=== PATIENT | male | born 1965 | race Two or more races ===

== ENCOUNTER 2025-06-08 07:10 | Day surgery (SDC) | payer MEDICAID, SELFPAY ==
--- NOTE | 2025-06-02 06:16 | EKG_ITS ---
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
[2025-06-02 07:21] VITALS: BMI 18.9
[2025-06-02 08:08] LABS: Collection Type, Urine Clean Catch; Squamous Epithelial Cell,Urine 0 /hpf (0-5)
[2025-06-02 08:22] LABS: Bilirubin,Urine Negative (Negative); Blood,Urine Negative (Negative); Clarity,Urine Clear (Clear/Hazy); Color,Urine Lt-Yellow (Lt Yel-Yel); Glucose, Urine Negative (Negative); Ketones,Urine Negative (Negative); Leukocyte Esterase,Urine Negative (Negative); Nitrite,Urine Negative (Negative); PH,Urine 6.5 (5.0-7.0); Protein,Urine Negative (Neg - Trace); RBC,Urine 3 /hpf (0-3); Specific Gravity,Urine 1.013 (1.001-1.035); Urobilinogen,Urine Negative mg/dL (0.0-1.0); WBC,Urine 1 /hpf (0-5)
[2025-06-02 08:31] LABS: Basophils # (Auto) 0.1 Thou/mm3 (0.0-0.2); Basophils % (Auto) 2 % (0-2.5); Eosinophils # (Auto) 0.0 Thou/mm3 (0.0-0.5); Eosinophils % (Auto) 1 % (0-10); Hematocrit 37.6 % (41.0-53.0); Hemoglobin 13.1 g/dL (13.5-16.0); Immature Granulocytes Auto 0.01 Thou/mm3 (0.00-0.00); Lymphocytes # (Auto) 1.0 Thou/mm3 (1.0-4.8); Lymphocytes % (Auto) 23 % (10-50); Mean Corpuscular HGB Conc 34.8 g/dl (31.0-37.0); Mean Corpuscular Hemoglobin 33.0 pg (25.0-35.0); Mean Corpuscular Volume 95 fL (80-100); Monocytes # (Auto) 0.5 Thou/mm3 (0.0-0.8); Monocytes % (Auto) 12 % (0-12); Neutrophils # (Auto) 2.7 Thou/mm3 (1.8-7.7); Neutrophils % (Auto) 63 % (37-80); Nucleated Red Blood Cell # 0.00 Thou/mm3 (0.00-0.00); Nucleated Red Blood Cell % 0 /100 WBC (0); Platelet Count 281 Thou/mm3 (140-440); RDW Standard Deviation 46.3 fL (35.1-43.9); Red Blood Count 3.97 Miln/mm3 (4.50-5.90); White Blood Count 4.3 Thou/mm3 (3.8-10.6)
[2025-06-02 08:50] LABS: Alanine Aminotransferase 24 U/L (10-49); Albumin, Serum 3.7 gm/dL (3.5-5.0); Albumin/Globulin Ratio 1.1 (1.2-2.2); Alkaline Phosphatase 161 U/L (46-116); Anion Gap 12 (7-16); Aspartate Amino Transferase 58 U/L (0-34); BUN/Creatinine Ratio 6 Ratio (12-20); Bilirubin,Total 0.3 mg/dL (0.3-1.2); Blood Urea Nitrogen < 5 mg/dL (9-23); Calcium 9.0 mg/dL (8.3-10.6); Calcium (Corrected) 9.2 mg/dL (8.5-10.1); Carbon Dioxide 25.5 mMol/L (20.0-31.0); Chloride 103 mMol/L (98-107); Creatinine (Component) 0.8 mg/dL (0.6-1.3); Estimated Creatinine Clearance 75.0 mL/min (>60); Globulin 3.3 gm/dL (2.3-3.5); Glucose 117 mg/dL (74-106); Osmolality,Calculated 277 (275-295); Potassium 3.8 mMol/L (3.4-5.1); Sodium 140 mMol/L (136-145); Total Protein 7.0 gm/dL (5.7-8.2); eGFR > 60 See Note
--- NOTE | 2025-06-07 12:11 | ESHP_ITS ---
RE: DEVORAH CLARKE : 1965 DATE OF ADMISSION: 06/07/2025 HISTORY OF PRESENT ILLNESS: A 60-year-old gentleman who was seen in the office with elevated PSA of 7.1. He has a history of enlarged prostate with nocturia 2-3 times. Urinary stream is slow. His PSA was 5.3, now it has gone up to 7.1. PAST SURGICAL HISTORY: History of cholecystectomy and hernia operations. SOCIAL HISTORY: He has 2 children. ALLERGIES: NONE KNOWN. PAST MEDICAL HISTORY: There is no history of diabetes mellitus. He has a history of hypertension. MEDICATIONS: He takes amitriptyline, Norvasc, Cipro, and tamsulosin 0.4 mg every day. PHYSICAL EXAMINATION: Reveals HEENT: Normal. Neck: Supple. Lungs are clear. Heart sounds are normal. Abdomen is soft without any organomegaly. No guarding. No rigidity. Extremities are normal. Phallus is normal. Testes are down in the scrotum. Rectal examination reveals moderately enlarged smooth prostate. IMPRESSION: 1. Prostatic obstruction. 2. Prostatism. 3. Elevated prostate-specific antigen. PLAN: Cystoscopy and transrectal prostatic ultrasound with ultrasound-guided prostatic needle biopsy. Planned procedure, risks, and complications have been discussed with the patient. The patient has understood them and agreed to proceed. DT: 10:55:42 TT: 12:10:00 Ref: [id number] - TID: [id number]
--- NOTE | 2025-06-07 15:08 | SUR.PREOP ---
Pt notified to come in at 0730 tomorrow.
--- NOTE | 2025-06-08 07:25 | CHAP ---
Visited briefly with patient and had prayer.
[2025-06-08 07:43] VITALS: BP 123/77; PULSE 72; RESP 10; TEMP 36.4; O2SAT 95; BMI 19.3
--- NOTE | 2025-06-08 09:30 | XR_ITS ---
Examination: Transrectal prostate sonography Date and time: June 08, 2025, 0949 hours INDICATIONS: Prostate ultrasound-guided biopsies in the OR this morning TECHNIQUE AND FINDINGS: Transrectal sonographic images prostate Prostate volume 46.82 cc IMPRESSION: Transrectal prostate sonography imaging for prostate biopsy today
[2025-06-08 10:03] VITALS: BP 85/60; PULSE 71; RESP 14; TEMP 36.1; O2SAT 100
--- NOTE | 2025-06-08 10:03 | SUR.PHASEII ---
1003: Pt. AAOx4, vitals stable, breathing unlabored, no complaint of pain or nausea, no dressing in place, no active bleed noted, report received from MD Emanuel and Rufino WOODS.
[2025-06-08 10:08] VITALS: BP 91/68; PULSE 69; RESP 16; TEMP 36.2; O2SAT 100
[2025-06-08 10:13] VITALS: BP 121/82; PULSE 80; RESP 13; TEMP 36.2; O2SAT 100
[2025-06-08] MEDS: fentaNYL CIT INJ 50 mCg/ML AMP 2ML IVP (10:14)
[2025-06-08 10:18] VITALS: BP 121/82; PULSE 79; RESP 12; TEMP 36.2; O2SAT 100
[2025-06-08 10:33] VITALS: BP 122/79; PULSE 72; RESP 12; TEMP 36.2; O2SAT 96
--- NOTE | 2025-06-08 10:40 | SUR.PHASEII ---
1040: Pt. AAOx4, vitals stable, breathing unlabored, no complaint of pain or nausea, no dressing in place, no active bleed noted, pt. tolerated sips of water and bites of jello well, pt. ambulated to wheelchair with steady gait and no assist, no complications. Gave discharge instructions to the pt. and his ride, both verbalized understanding and had no further questions. Pt. left with all personal belongings.
--- NOTE | 2025-06-08 11:41 | ESOP_ITS ---
RE: DEVORAH CLARKE : 1965 DATE OF OPERATION: 06/08/2025 PREOPERATIVE DIAGNOSES: Prostatic obstruction, prostatism, elevated PSA of 7.1. POSTOPERATIVE DIAGNOSES: Prostatic obstruction, prostatism, elevated PSA of 7.1. PROCEDURES PERFORMED: Cystoscopy and transrectal prostatic ultrasound and ultrasound-guided prostatic needle biopsy. ANESTHESIA: Monitored anesthesia by Dr. Emanuel. INDICATION: The patient is a 60-year-old gentleman with elevated PSA of 7.1. He has nocturia 2-3 times. Rectally, he has a moderately sized prostate without any hard nodules. He is now scheduled to have cystoscopy and transrectal prostatic ultrasound with ultrasound-guided prostatic needle biopsy. Planned procedure, risks, and complications have been discussed with the patient. The patient has understood them and agreed to proceed. DESCRIPTION OF PROCEDURE: After the patient was brought to the operating table, under adequate monitored anesthesia by Dr. Emanuel, he was placed in dorsal lithotomy position. Parts were prepped and draped in the usual fashion. Cystoscopy was then carried out, which revealed adequate urethral meatus, normal-appearing urethra, prostatic urethra revealed bilobed moderate- sized prostate. The residual urine was 2 ounces, yellow and clear and was sent for culture and sensitivity examination. There are no intravesical stones or tumors. Ureteral orifices are found to be normal in position and in appearance. Bladder mucosa is moderately trabeculated. The urethra was dilated and scope was withdrawn. The patient was then turned in left lateral position. Transrectal prostatic ultrasound was carried out. Biopsies were obtained from both lobes using ultrasound guidance. In all, about 8-10 biopsies were obtained. Prostatic volume was measured at 46.8 cubic cm. The patient tolerated the entire procedure well and left the room in good condition. DT: 10:10:06 TT: 11:38:00 Ref: [id number] - TID: [id number]
== END 2025-06-08 10:40 | disposition home or self-care (01) ==
PROVIDERS: Anesthesiology; PCP Family Medicine; Referring Provider Surgery; Visit Provider Surgery
PROC: (CPT 55700; principal; 2025-06-08 09:30)
PROC: 0TJB8ZZ Inspection of Bladder, Via Natural or Artificial Opening Endoscopic (ICD-10-PCS; CPT 52000; 2025-06-08 09:30)
DX: N40.1 Benign prostatic hyperplasia with lower urinary tract symptoms (principal); N13.8 Other obstructive and reflux uropathy; R35.1 Nocturia; R39.198 Other difficulties with micturition; Z01.810 Encounter for preprocedural cardiovascular examination
CPT/HCPCS: 52281; 55700; 36415; 76942; 80053; 81001; 85025; 87086; 93005; A4217; A4649; J0694; J2371; J2704; J3010; J3490